=== PATIENT | male | born 1960 ===

== ENCOUNTER 2021-03-22 16:19 | Inpatient (IN) ==
[2021-03-22] MEDS ORDERED: ONDANSETRON 4 MG/2 ML VIAL IV PRN (18:06)
[2021-03-22] MEDS ORDERED: GLUCAGON 1 MG VIAL IM PRN (18:06)
[2021-03-22] MEDS ORDERED: MORPHINE 2 MG/1 ML SYRINGE IV PRN (18:06)
[2021-03-22] MEDS ORDERED: DEXTROSE 50% 25 GM/50 ML VIAL IV PRN (18:06)
[2021-03-22] MEDS ORDERED: ACETAMINOPHEN 325 MG TABLET PO PRN (18:06)
[2021-03-22] MEDS ORDERED: PNEUMOCOCCAL VACCINE (23 VALENT) 0.5 ML VIAL IM ONE (18:39)
[2021-03-22] MEDS ORDERED: INFLUENZA VIRUS VACCINE 0.5 ML SYRINGE IM ONE (18:39)
[2021-03-22] MEDS: LACTATED RINGERS 1,000 ML IV SCH (19:43)
[2021-03-22 20:12] LABS: Basophils # 0.1 10*3/uL (0.0-0.2); Eosinophils % 0.2 % (0.00-10.9); Hematocrit 28.9 VOL% (42.0-52.0); Hemoglobin 10.4 GM/DL (14.0-18.0); Immature Granulocytes % 0.3 %; Immature Granulocytes Absolute 0.02 #; Lymphocytes # 0.5 10*3/uL (1.4-4.0); Lymphocytes % 8.7 % (21.2-54.2); Monocytes % 9.7 % (1.7-12.7); Neutrophils % 80.1 % (38.7-73.9); Platelet Count 166 T/CUMM (130-400); Red Blood Count 3.32 MC/CUMM (3.8-5.5)
[2021-03-22 20:22] LABS: Calcium 7.9 MG/DL (8.5-10.1); Osmolality,Calculated 274.5 MOS/KG (273-304); Potassium 3.2 MMOL/L (3.5-5.1)
[2021-03-22 20:32] LABS: INR 1.3; PT Patient Result 13.9 SECS (10.5-12.0)
[2021-03-22] MEDS: POTASSIUM CHLORIDE RIDER 10 MEQ/100 ML PREMIX IV PRN ×3 (21:13→23:08)
[2021-03-22] MEDS: PIPERACILLIN/TAZOBACTAM 3,375 MG in SODIUM CHLORIDE 0.9% 100 ML IV SCH (21:15)
[2021-03-23] MEDS: POTASSIUM CHLORIDE RIDER 10 MEQ/100 ML PREMIX IV PRN (00:08)
[2021-03-23] MEDS ORDERED: chlordiazePOXIDE 10 MG CAPSULE PO PRN (02:21)
[2021-03-23] MEDS ORDERED: THIAMINE 200 MG/2 ML VIAL IV ONE (02:21)
[2021-03-23] MEDS ORDERED: LORazepam 2 MG/1 ML VIAL IV PRN (02:21)
[2021-03-23] MEDS ORDERED: chlordiazePOXIDE 25 MG CAPSULE PO PRN (02:29)
[2021-03-23] MEDS: PIPERACILLIN/TAZOBACTAM 3,375 MG in SODIUM CHLORIDE 0.9% 100 ML IV SCH ×3 (05:24→22:26)
[2021-03-23 05:54] LABS: Basophils % 0.3 % (0.0-0.8); Hematocrit 28.2 VOL% (42.0-52.0); Immature Granulocytes % 0.5 %; Immature Granulocytes Absolute 0.06 #; Lymphocytes # 0.7 10*3/uL (1.4-4.0); Lymphocytes % 6.1 % (21.2-54.2); Mean Corpuscular HGB Conc 35.5 GM/DL (32-36); Mean Corpuscular Volume 87.9 FL (87-102); Mean Platelet Volume 11.7 FL (9.6-12.0); Monocytes % 13.7 % (1.7-12.7); Neutrophils % 79.4 % (38.7-73.9); Platelet Count 133 T/CUMM (130-400); Red Blood Count 3.21 MC/CUMM (3.8-5.5); Red Cell Distribution Width 12.9 % (9.3-17.3); White Blood Count 11.7 T/CUMM (4-12)
[2021-03-23 06:13] LABS: Albumin 3.2 G/DL (3.4-5.0); Bilirubin,Total 1.3 MG/DL (0.20-1.00); Osmolality,Calculated 271.8 MOS/KG (273-304); Potassium 3.7 MMOL/L (3.5-5.1); Total Protein 7.1 G/DL (6.4-8.2)
[2021-03-23 06:16] LABS: Hypochromasia 1+; Microcytosis 1+
[2021-03-23] MEDS ORDERED: MAGNESIUM SULF RIDER 2 GM/50 ML PREMIX IV PRN (06:24)
[2021-03-23] MEDS: MAGNESIUM SULF RIDER 4 GM/100 ML PREMIX IV PRN (06:34)
[2021-03-23] MEDS: FOLIC ACID 1 MG TABLET PO SCH (09:51)
[2021-03-23] MEDS: THIAMINE 100 MG TABLET PO SCH (09:51)
[2021-03-23] MEDS: MULTIVITAMIN (BEROCCA) TABLET PO SCH (09:51)
[2021-03-23] MEDS: LACTATED RINGERS 1,000 ML IV SCH (09:52)
[2021-03-23] MEDS ORDERED: POTASSIUM PHOSPHATE 15 MMOL in SODIUM CHLORIDE 0.9% 100 ML IV ONE (13:00)
[2021-03-23] MEDS: SODIUM CHLORIDE 0.65% NASAL SPRAY 45 ML BOTTLE BOTH NARES SCH ×3 (17:30→22:28)
[2021-03-24] MEDS: PIPERACILLIN/TAZOBACTAM 3,375 MG in SODIUM CHLORIDE 0.9% 100 ML IV SCH ×2 (04:57→12:50)
[2021-03-24] MEDS ORDERED: PANTOPRAZOLE 40 MG TABLET PO SCH (09:00)
[2021-03-24] MEDS: MAGNESIUM SULF RIDER 4 GM/100 ML PREMIX IV PRN (09:32)
[2021-03-24] MEDS: FOLIC ACID 1 MG TABLET PO SCH (09:33)
[2021-03-24] MEDS: THIAMINE 100 MG TABLET PO SCH (09:33)
[2021-03-24] MEDS: MULTIVITAMIN (BEROCCA) TABLET PO SCH (09:33)
[2021-03-24] MEDS: SODIUM CHLORIDE 0.65% NASAL SPRAY 45 ML BOTTLE BOTH NARES SCH ×2 (09:33→14:19)
[2021-03-24] MEDS: LACTATED RINGERS 1,000 ML IV SCH (12:51)
[2021-03-24 13:58] LABS: Potassium 3.7 MMOL/L (3.5-5.1)
[2021-03-24 16:50] VITALS: BP 131/85
== END 2021-03-24 14:40 | disposition home or self-care (01) | DRG 150 ==
LOC: SUATTDRO 18:21 → N.CC 18:21 → N.4E 03-23 13:30
PROVIDERS: ADMIT Family Medicine; ATTEND Internal Medicine